=== PATIENT | male | born 1960 | race African-American/Black ===

== ENCOUNTER 2016-11-24 16:38 | Emergency (ER) | payer OTHER ==
[~2016-11-24] VITALS: Ht 188 cm; Wt 97.2 kg
[2016-11-24 16:46] VITALS: BP 164/117
[2016-11-24] MEDS ORDERED: HYDROcodone/APAP 5/325 TABLET PO ONE (19:00)
== END 2016-11-24 19:04 | disposition home or self-care (01) ==
LOC: ED 18:58
DX: L02.11 Cutaneous abscess of neck (principal); Z88.1 Allergy status to other antibiotic agents
CPT/HCPCS: 99283

== ENCOUNTER 2016-11-26 08:44 | Emergency (ER) | payer OTHER ==
[~2016-11-26] VITALS: Ht 190.5 cm; Wt 98.7 kg
[2016-11-26 08:45] VITALS: BP 149/93
== END 2016-11-26 10:00 | disposition home or self-care (01) ==
LOC: ED 09:58
DX: Z48.01 Encounter for change or removal of surgical wound dressing (principal); Z98.890 Other specified postprocedural states; Z88.1 Allergy status to other antibiotic agents
CPT/HCPCS: 99282